=== PATIENT | female | born 1995 | race Caucasian/White ===

== ENCOUNTER 2018-11-19 05:52 | Day surgery (SDC) | payer MEDICAID ==
[2018-11-19] MEDS ORDERED: FENTAnyl 50 MCG/ML VIAL (07:39)
[2018-11-19] MEDS ORDERED: LIDOCAINE 100 MG SYRINGE (07:39)
[2018-11-19] MEDS ORDERED: PROPOFOL 200 MG INJ (07:39)
[2018-11-19] MEDS ORDERED: PROPOFOL 40 ML (07:39)
== END 2018-11-19 10:52 | disposition home or self-care (01) ==
LOC: GIL 05:52
DX: K29.30 Chronic superficial gastritis without bleeding (principal)
CPT/HCPCS: 43239; 84703; 88305; 88312